=== PATIENT | female | born 1985 | race Caucasian/White ===

== ENCOUNTER 2018-10-16 14:29 | Inpatient (IN) ==
[2018-10-16 15:55] LABS: INR 0.9 (0.9-1.1); Prothrombin Time 9.3 Seconds (9.0-12.0)
[2018-10-16 16:07] LABS: Hematocrit (blood only) 32.4 % (37-47); Hemoglobin 11.7 g/dL (12.0-16.0); Mean Corpuscular Hgb Conc 36.1 g/dL (32-36); Mean Platelet Volume 12.4 fL (7.4-10.4); Platelet Count 128 K/uL (130-400); Platelet Estimate Normal (Normal); RDW Coefficient of Variation 13.1 % (11.5-14.5); Red Blood Count 3.64 M/uL (4.2-5.4); White Blood Count 4.98 K/uL (4.8-10.8)
[2018-10-16 16:11] LABS: Albumin Level 2.7 gm/dl (3.4-5.0); Bilirubin Direct 0.1 mg/dl (0-0.2); Creatinine Clr Calc Pharmacy 144.7 ml/min; Est GFR (African American) 141.8; Est GFR (Non-African American) 122.4; Uric Acid 4.3 mg/dl (2.6-7.2)
[2018-10-16 16:13] LABS: Bilirubin,Total 0.6 mg/dl (0.2-1); Total Protein 6.6 gm/dl (6.4-8.2)
[2018-10-16] MEDS ORDERED: OXYTOCIN 30 UNITS/500 ML BAG IV PRN ×2 (19:17→21:00)
--- NOTE | 2018-10-16 19:26 | History & Physical Report ---
Date of Service October 16, 2018 Assessment & Plan (1) Gestational hypertension w/o significant proteinuria in 3rd trimester: -Patient observed on labor and delivery for 4 hours. -Patient with 2 separate blood pressures greater than 140/90 4 hours apart -Patient with a diagnosis of gestational hypertension -PIH labs within normal limits -Cervix unfavorable -We will place cervical Magdaleno, and run low-dose Pitocin -Diagnosis and treatment plan explained to the patient -All questions answered. History of Present Illness Chief Complaint: Elevated BP Primary Care Provider: NO PCP The patient is a 33-year-old 4 para 2-1-0-3, EDC of 29 October by first trimester ultrasound, at 38+ weeks gestational age who presented to labor and delivery for evaluation of elevated blood pressure. The patient has been taking her blood pressure at home due to a history of preeclampsia with her previous in 2010. The patient has been taking baby aspirin throughout this . Patient noted elevated blood pressures and was told to come to labor and delivery for evaluation. The patient had had a benign course until this point. Her blood type is O+, antibody negative, rubella immune, hepatitis B negative, she had a normal 1 hour Glucola x2, she declined cell free DNA screening, she had a negative third trimester beta strep culture. Allergies Allergy/AdvReac Type Severity Reaction Status Date / Time No Known Allergies Allergy Unverified 03/09/18 10:13 Home Medications Home Medications Medication Instructions Recorded Confirmed Type potassium chloride 10 meq PO DAILY #14 tab 03/09/18 Rx aspirin [Enteric Coated Aspirin] 81 mg PO DAILY 10/16/18 10/16/18 History vit no.[id number] 1 tab PO DAILY 10/16/18 10/16/18 History [ Vitamin] Patient History Medical History H/O wisdom tooth extraction Pre-eclampsia 2011 Family History Other No pertinent family history Social History Preferred Language: Cam[place]onian Communication Ability: Effective Beliefs That Will Affect Care: None marital status: Current Living Situation: Spouse Feels Safe at Home: Yes Smoking Status: Never smoker Hx Alcohol Use: No Hx Substance Use: No Physical Exam Constitutional: WD/WN, vitals as above Respiratory: Auscultation: lungs clear to auscultation bilaterally Cardiovascular: RRR, no murmur, no edema Extremities: no calf tenderness Gastrointestinal (Abdomen): Gravid, vertex, positive heart tones, estimated weight of 7 pounds Genitourinary: OB Exam Monitor Tracing: + category I Cx: closed/70/%/-2 Results & Data Vital Signs (Past 12 Hours) Vital Signs Temp Pulse Resp BP 10/16/18 19:02 36.9 C 18 10/16/18 19:00 18 10/16/18 18:42 67 171/97 H 10/16/18 18:30 20 10/16/18 18:00 18 10/16/18 17:30 18 10/16/18 17:00 16 10/16/18 16:30 20 10/16/18 16:00 18 10/16/18 15:30 20 10/16/18 15:28 64 145/89 H 10/16/18 15:12 65 137/88 10/16/18 15:00 36.8 C 20 10/16/18 14:57 66 135/84 10/16/18 14:40 73 157/95 H
--- NOTE | 2018-10-16 21:00 | Obstetrical Progress Note ---
Date of Service October 16, 2018 Assessment & Plan (1) Gestational hypertension w/o significant proteinuria in 3rd trimester: -Cervical Magdaleno placed for ripening -We will start low-dose Pitocin at 1 milliunits -We will begin increasing at 0500 on 10/17 Physical Exam Physical Exam: Procedure note: After obtaining verbal consent the patient was placed in the dorsolithotomy position #24's Magdaleno is inserted into the cervix and insufflated with 30 cc of normal saline speculum removed, patient tolerated the procedure well Results & Data Vital Signs (Past 12 Hours) Vital Signs Temp Pulse Resp BP 10/16/18 19:02 36.9 C 18 10/16/18 19:00 18 10/16/18 18:42 67 171/97 H 10/16/18 18:30 20 10/16/18 18:00 18 10/16/18 17:30 18 10/16/18 17:00 16 10/16/18 16:30 20 10/16/18 16:00 18 10/16/18 15:30 20 10/16/18 15:28 64 145/89 H 10/16/18 15:12 65 137/88 10/16/18 15:00 36.8 C 20 10/16/18 14:57 66 135/84 10/16/18 14:40 73 157/95 H
[2018-10-16] MEDS: LACTATED RINGER'S 1,000 ML IV PRN (21:17)
[2018-10-17] MEDS: LACTATED RINGER'S 1,000 ML IV PRN ×2 (05:00→07:00)
--- NOTE | 2018-10-17 05:00 | Labor Progress Brief Note ---
Date of Service October 17, 2018 Subjective can feel the contractions Assessment & Plan (1) Gestational hypertension w/o significant proteinuria in 3rd trimester: - tracing Cat II - cervical lechuga removed - will increase Pitocin per protocol - will get epidural when needed Physical Exam Genitourinary: OB Exam Monitor Tracing: + category II and + normal FHT variability Cervix: 3/80/-2 Results & Data Vital Signs (Past 12 Hours) Vital Signs Temp Pulse Resp BP 10/17/18 04:52 54 L 166/91 H 10/17/18 04:00 63 134/79 10/17/18 03:30 36.8 C 16 10/17/18 03:01 59 L 157/82 H 10/17/18 02:01 56 L 146/85 H 10/17/18 00:59 75 146/81 H 10/17/18 00:12 64 143/101 H 10/16/18 23:12 36.8 C 70 18 137/88 10/16/18 22:12 69 130/75 10/16/18 21:12 69 20 140/77 10/16/18 19:02 36.9 C 18 10/16/18 19:00 18 10/16/18 18:42 67 171/97 H 10/16/18 18:30 20 10/16/18 18:00 18 10/16/18 17:30 18 10/16/18 17:00 16
[2018-10-17] MEDS ORDERED: ePHEDrine sulfate 50 MG/ML AMP ONE (05:59)
[2018-10-17] MEDS ORDERED: BUPIVACAINE 0.25% 30 ML VIAL ONE (05:59)
[2018-10-17] MEDS ORDERED: fentaNYL 2MCG/ML ROPIV 1.25MG/ML 100 ML BAG EPI ONE (06:00)
[2018-10-17] MEDS ORDERED: fentaNYL citrate 100 MCG/2 ML VIAL ONE (06:00)
--- NOTE | 2018-10-17 07:13 | Anesthesiology Consultation ---
Date of Service October 17, 2018 Assessment & Plan (1) Encounter for pre-operative examination: Chart Review Chart Review: Patient NOT seen in Pre Admission Testing and Acceptable Risk for Labor Epidural Consults Requested none History Height/Weight Height: 5 ft 1 in Weight: 87.271 kg Allergies Allergy/AdvReac Type Severity Reaction Status Date / Time No Known Allergies Allergy Unverified 03/09/18 10:13 Medications Home Medications Medication Instructions Recorded Confirmed Last Taken aspirin [Enteric Coated Aspirin] 81 mg PO DAILY 10/16/18 10/16/18 10/14/18 vit no.[id number] 1 tab PO DAILY 10/16/18 10/16/18 10/14/18 [ Vitamin] Active Medications Generic Name Dose Route Start Last Admin Trade Name Freq PRN Reason Stop Dose Admin Lactated Ringer's 1,000 mls @ 125 mls/hr 10/16/18 19:17 10/17/18 07:00 Lr IV 10/18/18 19:16 125 mls/hr .Q8H PRN Infusion L&D Protocol Protocol Oxytocin 30 units in 500 mls @ 3 mls/hr 10/16/18 21:00 10/17/18 05:00 Pitocin IV 10/18/18 20:59 0.18 units/hr .Q24H PRN 3 mls/hr Labor Induction/Augmentation Titration Protocol 0.18 UNITS/HR Past Medical History Medical History H/O wisdom tooth extraction Pre-eclampsia 2011 Past Family History Family History Other No pertinent family history Social History Smoking Status: Never smoker Hx Alcohol Use: No Hx Substance Use: No Physical Exam Vital Signs Last Vital Signs Temp 36.8 C 10/17/18 03:30 Pulse 73 10/17/18 07:11 Resp 16 10/17/18 07:02 BP 129/68 10/17/18 07:06 Pulse Ox 90 10/17/18 07:11
[2018-10-17] MEDS ORDERED: fentaNYL 2MCG/ML ROPIV 1.25MG/ML 100 ML BAG EPI PRN (07:17)
[2018-10-17] MEDS ORDERED: DiphenhydrAMINE HCL 50 MG/ML VIAL IV PRN (07:17)
[2018-10-17] MEDS ORDERED: NALBUPHINE HCL INJ 10 MG/ML AMP IV PRN (07:17)
[2018-10-17] MEDS ORDERED: NALOXONE HCL 1 MG in SODIUM CHLORIDE 0.9% 1000ML 1,000 ML IV PRN (07:17)
[2018-10-17] MEDS ORDERED: NALOXONE HCL 0.4 MG/1 ML VIAL/CARP IV PRN (07:17)
[2018-10-17] MEDS ORDERED: ePHEDrine sulfate 50 MG/ML AMP IV PRN (07:17)
[2018-10-17] MEDS ORDERED: ONDANSETRON INJ 2 MG/ML 2 ML VIAL IV PRN (07:17)
--- NOTE | 2018-10-17 07:25 | Labor Progress Brief Note ---
Date of Service October 17, 2018 Subjective comfortable with epidural, but feels pressure Assessment & Plan (1) Gestational hypertension w/o significant proteinuria in 3rd trimester: -tracing Cat II -begin 2nd stage Physical Exam Genitourinary: Cx: Complete/(+)1-(+)2 Results & Data Vital Signs (Past 12 Hours) Vital Signs Temp Pulse Resp BP Pulse Ox 10/17/18 07:21 89 100 10/17/18 07:18 74 141/71 H 10/17/18 07:17 92 H 93 10/17/18 07:16 76 95 10/17/18 07:14 77 125/69 10/17/18 07:11 74 100 10/17/18 07:06 70 129/68 100 10/17/18 07:04 60 126/65 10/17/18 07:02 69 16 126/64 10/17/18 07:01 68 124/61 100 10/17/18 06:59 67 131/75 10/17/18 06:57 80 18 140/84 10/17/18 06:56 83 96 10/17/18 06:54 78 148/88 H 10/17/18 06:53 18 10/17/18 06:51 86 100 10/17/18 06:50 71 20 188/113 H 10/17/18 06:49 80 189/109 H 91 10/17/18 06:46 75 98 10/17/18 06:41 69 97 10/17/18 06:40 81 92 10/17/18 06:36 83 97 10/17/18 06:35 81 91 10/17/18 06:31 78 100 10/17/18 06:30 87 87 L 10/17/18 06:26 89 100 10/17/18 06:21 84 100 10/17/18 06:16 79 100 10/17/18 06:11 83 100 10/17/18 06:06 83 100 10/17/18 05:33 61 161/102 H 10/17/18 05:22 62 164/98 H 10/17/18 04:52 54 L 166/91 H 10/17/18 04:00 63 134/79 10/17/18 03:30 36.8 C 16 10/17/18 03:01 59 L 157/82 H 10/17/18 02:01 56 L 146/85 H 10/17/18 00:59 75 146/81 H 10/17/18 00:12 64 143/101 H 10/16/18 23:12 36.8 C 70 18 137/88 10/16/18 22:12 69 130/75 10/16/18 21:12 69 20 140/77
--- NOTE | 2018-10-17 08:56 | Procedure Note ---
Vaginal Delivery Summary Date of Service October 17, 2018 Patient induced by my partner Dr. Caceres for gestational hypertension I arrived on shift at 8:30 in the morning at that time the patient was able to push and deliver moments after sign over a baby in occiput anterior position baby was vigorous no excessive force was used no nuchal cord fluid was clear gentle traction and dilute baby was delivered cord clamped and cut cord gases obtained cord blood obtained placenta removed with traction IV Pitocin started uterine tone improved and hemostasis was excellent there is no tearing estimated blood loss 250 mL
--- NOTE | 2018-10-17 08:59 | Anesthesia Procedure Note ---
Date of Service October 17, 2018 Anesthesia Post Epidural Note Vital Signs Vital Signs: Temp Pulse Resp BP Pulse Ox 36.5 C 81 18 157/79 H 91 10/17/18 07:21 10/17/18 08:48 10/17/18 07:21 10/17/18 08:48 10/17/18 08:43 Pain Intensity Bilateral Abdomen: Pain Intensity: 4 Notes Mental Status: alert / awake / arousable Patient Amnestic to Procedure: No Nausea / Vomiting: adequately controlled Pain: adequately controlled Airway Patency, RR, SpO2: stable & adequate BP & HR: stable & adequate Hydration State: stable & adequate Neuraxial Anesthesia: was administered and sensory block is resolving Anesthetic Complications: no major complications apparent and Pt Satisfied with anesthetic care Epidural: Removed without complications and With tip intact
[2018-10-17 09:08] LABS: Base Excess Cord Arterial Bld -3.4 mEq/L (-9-1.8); CO2 Cord Arterial Blood 45 mmHg (39.1-73.5); HCO3 Cord Arterial Blood 23 mmol/L (19.7-28.5); PO2 Cord Arterial Blood 23.9 % (4.1-31.7); pH Cord Arterial Blood 7.33 (7.1-7.38)
[2018-10-17 09:11] LABS: Cord Venous Blood HCO3 22 mmol/L (18.4-26.8); Cord Venous Blood PCO2 37 mmHg (30.4-57.2); Cord Venous Blood PO2 31 mmHg (14.1-43.3); Cord Venous Blood pH 7.38 (7.20-7.44)
[2018-10-17] MEDS ORDERED: OXYCODONE/ACETAMINOPHEN 5mg/325mg TAB PO PRN (10:12)
[2018-10-17] MEDS ORDERED: HYDROCORTISONE ACETATE 25 MG SUPP PR PRN (10:12)
[2018-10-17] MEDS ORDERED: ACETAMINOPHEN 325 MG TAB PO PRN (10:12)
[2018-10-17] MEDS ORDERED: SUPERCREAM 0.870% 15 GM JAR EXT PRN (10:12)
[2018-10-17] MEDS ORDERED: DIPHTHERIA/TETANUS/PERTUSSIS 0.5 ML SYR/VIAL IM ONE (10:12)
[2018-10-17] MEDS ORDERED: LACTATED RINGER'S 1,000 ML IV SCH (10:12)
[2018-10-17] MEDS ORDERED: BENZOCAINE 20% AER SPR 82.5 GM CAN EXT PRN (10:12)
[2018-10-17] MEDS ORDERED: OXYTOCIN 30 UNITS/500 ML BAG IV PRN (10:12)
[2018-10-17] MEDS: DOCUSATE SODIUM 100 MG CAP PO SCH ×2 (10:40→20:28)
[2018-10-17] MEDS: PRENATAL VITAMIN 1 TAB PO SCH (10:40)
[2018-10-17] MEDS: IBUPROFEN 600 MG TAB PO PRN (17:08)
[2018-10-18] MEDS: IBUPROFEN 600 MG TAB PO PRN ×3 (00:59→12:22)
[2018-10-18 06:30] LABS: Hematocrit (blood only) 30.9 % (37-47); Hemoglobin 10.9 g/dL (12.0-16.0); Mean Corpuscular Hgb Conc 35.3 g/dL (32-36); Mean Corpuscular Volume 90.4 fL (80-100); Mean Platelet Volume 12.4 fL (7.4-10.4); Platelet Count 114 K/uL (130-400); RDW Coefficient of Variation 13.3 % (11.5-14.5); RDW Standard Deviation 43.7 fL (36.4-46.3); Red Blood Count 3.42 M/uL (4.2-5.4); White Blood Count 6.22 K/uL (4.8-10.8)
--- NOTE | 2018-10-18 06:40 | Obstetrical Progress Note ---
Date of Service <Pranav Piedra MD - Last Filed: 10/18/18 06:40> October 18, 2018 Assessment & Plan <Pranav Piedra MD - Last Filed: 10/18/18 06:40> (1) Normal vaginal delivery: Erin is a 33yo who presented at 38+ weeks now s/p PPD#1 - Blood type O+, RI, GBS negative - complicated by gestational HTN. Her pressures have been high overnight (150/88 this AM) - Feels well today. Eating well, voiding well, ambulating well. - Pain well controlled with ibuprofen 600mg Q4H PRN & APAP 650mg Q6H. - well, no difficulties - Routine care - After discharge will have [address] An. - She currently requires inpatient admission for further observation and management of hypertension Subjective <Pranav Piedra MD - Last Filed: 10/18/18 06:40> Ambulation: ambulating normally Voiding: no voiding problems Passing Gas:: Yes Diet Tolerance:: regular diet Lochia:: Small Feeding Type:: breast feeding Current Pain Level(1-10): 2 Review of Systems Denies fever, chills, sweats Denies shortness of breath, difficulty breathing, chest pain, palpitations, chest pressure. Denies breast pain. Denies dysuria. Denies headache. Physical Exam <Pranav Piedra MD - Last Filed: 10/18/18 06:40> General: Alert, oriented. No acute distress. Cardiac: Regular rate and rhythm, no murmurs/rubs/gallops. Respiratory: Clear to auscultation anterior and posteriorly, no wheezes/rales/rhonchi. No increased work of breathing. Symmetrical chest rise. No respiratory distress. Abdomen: Soft, nontender, nondistended. Bowel sounds present. Uterus: Uterine fundus firm, palpable at-1cm above umbilicus. Lower Extremities: No lower extremity edema or swelling. No deep calf pain. Dennise's negative bilaterally. Results & Data <Pranav Piedra MD - Last Filed: 10/18/18 06:40> Vital Signs (Past 12 Hours) Vital Signs Temp Pulse Resp BP 10/18/18 05:05 36.7 C 64 16 150/88 H 10/17/18 23:30 36.6 C 69 16 143/88 H 10/17/18 21:05 36.5 C 72 18 155/84 H <hCase An MD, FACOG - Last Filed: 10/18/18 06:45> Co-Signing Physician Notes Resident Physician Supervision Note: I interviewed and examined the patient. Discussed with [Dorothea] and agree with findings and plan as documented in the note. Any exceptions or clarifications are listed here: Discussed BP are borderline. Will not medicate yet, but if systolic >150 consistently, consider treatment Documented By: Chase An MD, FACOG Resident Activity Tracking <Pranav Piedra MD - Last Filed: 10/18/18 06:40> Resident Involvement: Resident Care Provided Care Provided: Adult Hospital Medicine
[2018-10-18 06:59] LABS: Platelet Estimate Normal (Normal)
[2018-10-18] MEDS: DOCUSATE SODIUM 100 MG CAP PO SCH ×2 (08:31→20:40)
[2018-10-18] MEDS: PRENATAL VITAMIN 1 TAB PO SCH (08:31)
--- NOTE | 2018-10-19 06:46 | Obstetrical Progress Note ---
Date of Service <Pranav Piedra MD - Last Filed: 10/19/18 06:52> October 19, 2018 Assessment & Plan <Pranav Piedra MD - Last Filed: 10/19/18 06:52> (1) Normal vaginal delivery: Erin is a 33yo who presented at 38+ weeks now s/p PPD#2 - Blood type O+, RI, GBS negative - complicated by gestational HTN. Her pressures have been high overnight in 140s, 153/92 this morning - Given persistent gestational hypertension recommend addition of labetelol 100- 200mg BID and followup for a BP check in 1 week after discharge. - Feels well today. Eating well, voiding well, ambulating well. - Pain well controlled with ibuprofen 600mg Q4H PRN & APAP 650mg Q6H. - well, no difficulties - Will have [address] An. Subjective <Pranav Piedra MD - Last Filed: 10/19/18 06:52> Ambulation: ambulating normally Voiding: no voiding problems Passing Gas:: Yes Diet Tolerance:: regular diet Lochia:: Small Feeding Type:: breast feeding Current Pain Level(1-10): 3 Review of Systems Denies fever, chills, sweats Denies shortness of breath, difficulty breathing, chest pain, palpitations, chest pressure. Denies breast pain. Denies dysuria. Denies headache. Physical Exam <Pranav Piedra MD - Last Filed: 10/19/18 06:52> General: Alert, oriented. No acute distress. Cardiac: Regular rate and rhythm, no murmurs/rubs/gallops. Respiratory: Clear to auscultation anterior and posteriorly, no wheezes/rales/rhonchi. No increased work of breathing. Symmetrical chest rise. No respiratory distress. Abdomen: Soft, nontender, nondistended. Bowel sounds present. Uterus: Uterine fundus firm, palpable >2cm below umbilicus. Lower Extremities: No lower extremity edema or swelling. No deep calf pain. Dennise's negative bilaterally. Results & Data <Pranav Piedra MD - Last Filed: 10/19/18 06:52> Vital Signs (Past 12 Hours) Vital Signs Temp Pulse Resp BP BP 10/19/18 04:11 72 18 153/92 H 10/18/18 23:15 36.4 C L 75 18 147/92 H <Andrew Chong MD - Last Filed: 10/25/18 09:28> Co-Signing Physician Notes Patient evaluated and agree with the above findings and plan Resident Activity Tracking <Pranav Piedra MD - Last Filed: 10/19/18 06:52> Resident Involvement: Resident Care Provided Care Provided: Adult Hospital Medicine
[2018-10-19 07:21] LABS: Hematocrit (blood only) 29.6 % (37-47); Hemoglobin 10.3 g/dL (12.0-16.0)
[2018-10-19] MEDS: PRENATAL VITAMIN 1 TAB PO SCH (08:02)
[2018-10-19] MEDS: IBUPROFEN 600 MG TAB PO PRN (08:02)
[2018-10-19] MEDS: DOCUSATE SODIUM 100 MG CAP PO SCH (08:02)
== END 2018-10-19 11:26 | disposition home or self-care (01) | DRG 807 ==
LOC: OPB 14:29 → 4S1 14:30 → 4S2 10-17 13:56
DX: Z3A.38 38 weeks gestation of pregnancy; Z37.0 Single live birth; O13.4 Gestational [pregnancy-induced] hypertension without significant proteinuria, complicating childbirth